=== PATIENT | male | born 1940 | race African-American/Black ===

== ENCOUNTER → 2016-06-20 | Outpatient (CLI) | payer MEDICARE, MEDICAID ==
[~2016-06-20] MED LIST: ASPI-518; ATEN50TA PO; FERR-63 PO; POTA99TA25 PO; ROSU20TA; TRIA1POW10 PO
== END | disposition home or self-care (01) ==
LOC: MRI 09:05
PROVIDERS: ATTEND Neurological Surgery
DX: M48.06 Spinal stenosis, lumbar region (principal)
CPT/HCPCS: 72148

== ENCOUNTER → 2016-06-26 | Outpatient (CLI) | payer MEDICARE, MEDICAID ==
[~2016-06-26] MED LIST changes: +AMLO1TAB36 PO; +AMLO1TAB39 PO; +CHOL500010 PO; +HYDR-519 PO; +IBUP-1636 PO; +METO25TA6 PO; +MULT-1146 PO; +NEBI10TA2 PO; +POTA20TA82 PO; +[UNRECOGNIZED DRUG - CODE] PO
[2016-06-26 12:26] LABS: CLARITY URINE CLEAR (CLEAR); COLOR URINE YELLOW (YELLOW); GLUCOSE URINE NEGATIVE (NEGATIVE); KETONES URINE NEGATIVE (NEGATIVE); LEUKOCYTE ESTERASE URINE NEGATIVE (NEGATIVE); NITRITE URINE NEGATIVE (NEGATIVE); OCCULT BLOOD URINE NEGATIVE (NEGATIVE); PH URINE 6.5 (4.5-8.0); PROTEIN URINE NEGATIVE (NEGATIVE); SPECIFIC GRAVITY URINE 1.017 (1.005-1.030); UROBILINOGEN URINE 0.2 E.U./dL (0.2-1.0)
[2016-06-26 12:30] LABS: BASOPHILS % 0.9 % (0.0-2.0); EOSINOPHILS % 4.4 % (0.0-5.0); HEMATOCRIT. 39.9 % (42.0-52.0); HEMOGLOBIN. 12.8 g/dL (14.0-18.0); LYMPHOCYTES % 30.5 % (20.0-50.0); MEAN CORPUSCULAR HEMOGLOBIN 26.5 pg (28.0-32.0); MEAN CORPUSCULAR VOLUME 82.3 fL (80.0-94.0); MEAN PLATELET VOLUME 8.3 fl (7.4-10.4); MONOCYTES % 11.2 % (2.0-8.0); PLATELET 200 x1000/uL (130-400); RED BLOOD CELL COUNT 4.85 mill/uL (4.7-6.1); RED CELL DISTRIBUTION WIDTH 14.4 % (11.6-14.6)
[2016-06-26 12:34] LABS: PROTHROMBIN TIME 10.1 sec
[2016-06-26 12:37] LABS: CARBON DIOXIDE 31 mEq/L (21-32); CHLORIDE 107 mEq/L (98-107)
== END | disposition home or self-care (01) ==
LOC: LAB 11:54
PROVIDERS: ATTEND Neurological Surgery
DX: Z01.818 Encounter for other preprocedural examination (principal); M48.06 Spinal stenosis, lumbar region; I25.10 Atherosclerotic heart disease of native coronary artery without angina pectoris; Z79.01 Long term (current) use of anticoagulants; Z98.1 Arthrodesis status
CPT/HCPCS: 36415; 80053; 81003; 85025; 85610; 85730; 86850; 86900

== ENCOUNTER → 2016-06-28 | Outpatient (CLI) | payer MEDICARE, MEDICAID ==
[~2016-06-28] MED LIST changes: -AMLO1TAB36 PO; -AMLO1TAB39 PO; -CHOL500010 PO; -HYDR-519 PO; -IBUP-1636 PO; -METO25TA6 PO; -MULT-1146 PO; -NEBI10TA2 PO; -POTA20TA82 PO; -[UNRECOGNIZED DRUG - CODE] PO
== END | disposition home or self-care (01) ==
LOC: RAD 13:10
PROVIDERS: ATTEND Neurological Surgery
DX: M48.06 Spinal stenosis, lumbar region (principal); Z98.1 Arthrodesis status
CPT/HCPCS: 71020; 93005

== ENCOUNTER → 2016-08-23 | Outpatient (CLI) | payer MEDICARE, MEDICAID ==
[~2016-08-23] MED LIST changes: +AMLO1TAB36 PO; +CHOL500010 PO; +HYDR-519 PO; +IBUP-1636 PO; +METO25TA6 PO; +MULT-1146 PO; +NEBI10TA2 PO; +POTA20TA82 PO; -POTA99TA25 PO; +[UNRECOGNIZED DRUG - CODE] PO
== END | disposition home or self-care (01) ==
LOC: RAD 14:18
PROVIDERS: ATTEND Neurological Surgery
DX: M47.897 Other spondylosis, lumbosacral region (principal); M47.896 Other spondylosis, lumbar region
CPT/HCPCS: 72114

== ENCOUNTER 2017-02-24 16:08 | Emergency (ER) | payer MEDICARE, MEDICAID ==
[~2017-02-24] VITALS: Ht 177.8 cm; Wt 75.0 kg
[2017-02-24 16:28] VITALS: BP 108/50
[2017-02-24 16:42] LABS: BASOPHILS % 0.7 % (0.0-2.0); HEMATOCRIT. 44.3 % (42.0-52.0); HEMOGLOBIN. 14.3 g/dL (14.0-18.0); LYMPHOCYTES % 26.7 % (20.0-50.0); MEAN CORPUSCULAR HEMOGLOBIN 26.6 pg (28.0-32.0); MEAN CORPUSCULAR VOLUME 82.4 fL (80.0-94.0); MEAN PLATELET VOLUME 8.8 fl (7.4-10.4); MONOCYTES % 10.8 % (2.0-8.0); NEUTROPHILS % 61.8 % (40.0-76.0); PLATELET 159 x1000/uL (130-400); RED BLOOD CELL COUNT 5.38 mill/uL (4.7-6.1); RED CELL DISTRIBUTION WIDTH 14.9 % (11.6-14.6)
[2017-02-24] MEDS ORDERED: ASPIRIN 81MG TABLET ONE (16:44)
[2017-02-24] MEDS ORDERED: ASPIRIN 325MG TABLET PO ONE (16:45)
[2017-02-24 16:50] LABS: INR 1.1; PARTIAL THROMBOPLASTIN TIME 29.4 sec (23.4-31.0); PROTHROMBIN TIME 11.7 sec (9.4-11.6)
[2017-02-24 16:55] LABS: CARBON DIOXIDE 23 mEq/L (21-32); CHLORIDE 103 mEq/L (98-107)
[2017-02-24 17:02] LABS: CREATINE KINASE 164 IU/L (39-308); CREATINE KINASE MB FRACTION 1.8 ng/mL (0.5-3.6)
[2017-02-24 17:03] LABS: TROPONIN I 0.45 ng/mL (0.00-0.04)
== END 2017-02-24 17:06 | disposition short-term general hospital (02) ==
LOC: ER 16:16
DX: I21.9 Acute myocardial infarction, unspecified (principal); I11.9 Hypertensive heart disease without heart failure; I48.91 Unspecified atrial fibrillation; E78.00 Pure hypercholesterolemia, unspecified; Z95.5 Presence of coronary angioplasty implant and graft; Z79.82 Long term (current) use of aspirin; Z79.899 Other long term (current) drug therapy
CPT/HCPCS: 36415; 80053; 82550; 82553; 83690; 83880; 84443; 84484; 85025; 85610; 85730; 93005; 99291

== ENCOUNTER 2018-12-10 13:14 | Emergency (ER) | payer MEDICARE, MEDICAID ==
[~2018-12-10] VITALS: Ht 177.8 cm; Wt 75.0 kg
[~2018-12-10 13:14] MED LIST changes: -ASPI-518; +ASPI-518 PO; -ROSU20TA; +ROSU20TA2 PO
[2018-12-10] MEDS ORDERED: ADENOSINE 3 MG/ML 2ML VIAL IV ONE ×4 (13:30→13:32)
[2018-12-10] MEDS ORDERED: ATENOLOL 25MG TABLET PO ONE (14:00)
[2018-12-10 14:58] VITALS: BP 119/65
[2018-12-12] MEDS ORDERED: METO-411 MT (11:56)
[2018-12-12] MEDS ORDERED: POTA20TA82 MT (11:56)
[2018-12-12] MEDS ORDERED: HYDR-4009 MT (11:56)
[2018-12-12] MEDS ORDERED: ALPR2TAB2 PO (11:56)
[2018-12-12] MEDS ORDERED: GABA-531 MT (11:56)
[2018-12-12] MEDS ORDERED: TIZA4CAP6 MT (11:56)
[2018-12-12] MEDS ORDERED: OMEP20TA2 MT (11:56)
[2018-12-12] MEDS ORDERED: AMLO1TAB36 MT (11:56)
== END 2018-12-11 00:13 | disposition home or self-care (01) ==
LOC: ER 13:14
DX: I47.1 Supraventricular tachycardia (principal); I10 Essential (primary) hypertension; Z98.890 Other specified postprocedural states; Z79.82 Long term (current) use of aspirin; Z79.899 Other long term (current) drug therapy; Z88.8 Allergy status to other drugs, medicaments and biological substances
CPT/HCPCS: 93005; 96374; 99283; J0153

== ENCOUNTER 2018-12-12 05:01 | Inpatient (IN) | payer MEDICARE, MEDICAID ==
[~2018-12-12] VITALS: Ht 177.8 cm; Wt 77.7 kg
[2018-12-12] MEDS ORDERED: SODIUM CHLORIDE 0.9% 1,000 ML IV ONE (05:10)
[2018-12-12] MEDS ORDERED: ADENOSINE 3 MG/ML 2ML VIAL IV ONE ×4 (05:15→05:30)
[2018-12-12] MEDS ORDERED: METOPROLOL TARTRATE 25MG TABLET PO ONE (05:30)
[2018-12-12 05:36] LABS: CHLORIDE 106 mEq/L (98-107)
[2018-12-12 05:44] LABS: BASOPHILS % 0.9 % (0.0-2.0); EOSINOPHILS % 2.3 % (0.0-5.0); HEMATOCRIT. 45.8 % (42.0-52.0); HEMOGLOBIN. 14.9 g/dL (14.0-18.0); LYMPHOCYTES % 41.9 % (20.0-50.0); MEAN CORPUSCULAR HEMOGLOBIN 28.1 pg (28.0-32.0); MEAN CORPUSCULAR VOLUME 86.2 fL (80.0-94.0); MEAN PLATELET VOLUME 8.9 fl (7.4-10.4); MONOCYTES % 9.5 % (2.0-8.0); NEUTROPHILS % 45.4 % (40.0-76.0); PLATELET 233 x1000/uL (130-400); RED BLOOD CELL COUNT 5.31 mill/uL (4.7-6.1); RED CELL DISTRIBUTION WIDTH 14.9 % (11.6-14.6)
[2018-12-12 06:50] VITALS: BP 125/82
[2018-12-12 07:30] VITALS: BP 108/61
[2018-12-12 08:00] VITALS: BP 108/61
[2018-12-12] MEDS ORDERED: ONDANSETRON HCL 4MG/2ML INJ IV PRN (11:30)
[2018-12-12] MEDS ORDERED: OMEPRAZOLE 20MG CAPSULE EXTENDED RELEASE PO PRN (11:30)
[2018-12-12] MEDS ORDERED: AMLO1TAB36 MT (11:56)
[2018-12-12] MEDS ORDERED: ALPR2TAB2 PO (11:56)
[2018-12-12] MEDS ORDERED: HYDR-4009 MT (11:56)
[2018-12-12] MEDS ORDERED: POTA20TA82 MT (11:56)
[2018-12-12] MEDS ORDERED: TIZA4CAP6 MT (11:56)
[2018-12-12] MEDS ORDERED: GABA-531 MT (11:56)
[2018-12-12] MEDS ORDERED: METO-411 MT (11:56)
[2018-12-12] MEDS ORDERED: OMEP20TA2 MT (11:56)
[2018-12-12 12:00] VITALS: BP 116/64
[2018-12-12] MEDS ORDERED: SODIUM CHLORIDE 0.9% INJ 3ML FLUSH IVF SCH (12:08)
[2018-12-12 16:00] VITALS: BP 142/78
[2018-12-12 20:00] VITALS: BP 132/71
[2018-12-12] MEDS ORDERED: ATORVASTATIN CALCIUM 20MG TABLET PO SCH (21:00)
[2018-12-12] MEDS ORDERED: METOPROLOL TARTRATE 50MG TABLET PO SCH (21:00)
[2018-12-12] MEDS ORDERED: ADENOSINE 3 MG/ML 2ML VIAL IV NR ×2 (21:51→22:00)
[2018-12-12 23:02] LABS: CLARITY URINE CLEAR (CLEAR); COLOR URINE YELLOW (YELLOW); KETONES URINE NEGATIVE (NEGATIVE); LEUKOCYTE ESTERASE URINE NEGATIVE (NEGATIVE); NITRITE URINE NEGATIVE (NEGATIVE); OCCULT BLOOD URINE NEGATIVE (NEGATIVE); PH URINE 7.5 (4.5-8.0); PROTEIN URINE NEGATIVE (NEGATIVE); SPECIFIC GRAVITY URINE 1.015 (1.005-1.030)
[2018-12-13] VITALS: BP 130/72
[2018-12-13 04:00] VITALS: BP 131/75
[2018-12-13 06:42] LABS: BASOPHILS % 0.7 % (0.0-2.0); EOSINOPHILS % 1.4 % (0.0-5.0); HEMATOCRIT. 41.6 % (42.0-52.0); HEMOGLOBIN. 13.5 g/dL (14.0-18.0); LYMPHOCYTES % 27.3 % (20.0-50.0); MEAN CORPUSCULAR HEMOGLOBIN 27.8 pg (28.0-32.0); MEAN CORPUSCULAR VOLUME 85.7 fL (80.0-94.0); MEAN PLATELET VOLUME 8.8 fl (7.4-10.4); MONOCYTES % 9.2 % (2.0-8.0); NEUTROPHILS % 61.4 % (40.0-76.0); PLATELET 194 x1000/uL (130-400); RED BLOOD CELL COUNT 4.85 mill/uL (4.7-6.1); RED CELL DISTRIBUTION WIDTH 14.4 % (11.6-14.6)
[2018-12-13 07:21] LABS: PHOSPHORUS 2.7 mg/dL (2.5-4.9)
[2018-12-13 07:53] VITALS: BP 127/83
[2018-12-13] MEDS ORDERED: METOPROLOL TARTRATE 50MG TABLET PO SCH (09:00)
[2018-12-13 10:37] VITALS: BP 127/83
[2018-12-13 11:48] VITALS: BP 138/77
== END 2018-12-13 13:12 | disposition home health service (06) | DRG 309 ==
LOC: ER 05:01 → 7WST 05:47 → ENRESERV 06:01
PROVIDERS: ADMIT Internal Medicine; ATTEND Internal Medicine
PROC: 5A2204Z Restoration of Cardiac Rhythm, Single (ICD-10-PCS; principal; 2018-12-12)
DX: I47.1 Supraventricular tachycardia (principal); E87.2 Acidosis; E78.5 Hyperlipidemia, unspecified; G89.29 Other chronic pain; I10 Essential (primary) hypertension; I25.10 Atherosclerotic heart disease of native coronary artery without angina pectoris; M47.817 Spondylosis without myelopathy or radiculopathy, lumbosacral region; M51.37 Other intervertebral disc degeneration, lumbosacral region; N40.0 Benign prostatic hyperplasia without lower urinary tract symptoms; M19.90 Unspecified osteoarthritis, unspecified site; Z79.899 Other long term (current) drug therapy; Z95.5 Presence of coronary angioplasty implant and graft; Z88.8 Allergy status to other drugs, medicaments and biological substances
CPT/HCPCS: 36415; 71045; 80061; 80076; 81003; 82310; 83036; 83540; 83550; 83605; 83735; 83880; 84100; 84153; 84443; 84480; 84481; 84484; 84550; 93005; 93970; 96374; 99283; 99291; J0153; J7030; G0103

== ENCOUNTER 2021-10-08 18:13 | Emergency (ER) | payer MEDICARE, MEDICAID ==
[~2021-10-08] VITALS: Ht 177.8 cm; Wt 75.0 kg
[~2021-10-08 18:13] MED LIST changes: +ALPR2TAB2 PO; +AMLO1TAB36 MT; -AMLO1TAB36 PO; -CHOL500010 PO; -FERR-63 PO; +GABA-532 MT; +HYDR-4009 MT; -HYDR-519 PO; -IBUP-1636 PO; +METO-411 MT; -METO25TA6 PO; -MULT-1146 PO; -NEBI10TA2 PO; +OMEP20TA23 MT; +POTA-205 MT; -POTA20TA82 PO; +TIZA4CAP6 MT; -TRIA1POW10 PO; -[UNRECOGNIZED DRUG - CODE] PO
[2021-10-08] MEDS ORDERED: HYDROCODONE/ACETAMINOPHEN 10/325MG TABLET PO ONE (22:30)
[2021-10-08] MEDS ORDERED: IBUPROFEN 600MG TABLET PO ONE (22:30)
[2021-10-08 23:11] VITALS: BP 135/86
== END 2021-10-08 23:12 | disposition home or self-care (01) ==
LOC: ER 18:13
DX: R07.81 Pleurodynia (principal); R07.89 Other chest pain; M25.511 Pain in right shoulder; M79.671 Pain in right foot; I11.0 Hypertensive heart disease with heart failure; I50.9 Heart failure, unspecified; I48.91 Unspecified atrial fibrillation; Z79.01 Long term (current) use of anticoagulants; Z79.82 Long term (current) use of aspirin; Z79.899 Other long term (current) drug therapy
CPT/HCPCS: 71045; 73630; 99284

== ENCOUNTER → 2022-10-02 | Day surgery (SDC) | payer MEDICARE, MEDICAID ==
[~2022-10-02] VITALS: Ht 177.8 cm; Wt 70.3 kg
[~2022-10-02] MED LIST changes: -ATEN50TA PO; +BALANCED SALT IRRIG SOLN COMB1 500ML OP NR; +CARV20CP PO; +CYAN500T9 PO; +DEXAMETHASONE 4MG/ML 1ML VIAL ONE; +DILT30TA37 PO; +DULO60CA45 PO; +ERGO1250 PO; +ESCI20TA37 PO; +FENTANYL CITRATE/PF 50MCG/ML 2ML VIAL IV PRN; -GABA-532 MT; +HYALURONATE SODIUM 10 MG/ML 0.55ML SYRINGE IO ONE; +LACTATED RINGERS 1,000 ML IV SCH; +LIDOCAINE HCL 1% 10 MG/ML 10ML VIAL ONE; +METHYLPREDNISOLONE SOD SUCC 40MG/ML (ACT-O-VIAL) ONE; -METO-411 MT; +MIDAZOLAM HCL 2 MG/2 ML VIAL ONE; +ONDANSETRON HCL 4MG/2ML INJ ONE; +PHENYLEPHRINE 2.5% OPHTH 15 DROP/ML BOTTLE RIGHTEYE ONE; -POTA-205 MT; +PROPOFOL 200MG/20ML VIAL IV ONE; +TOBRAMYCIN/DEXAMETHASONE OPTH DROPS 2.5ML ONE; +TROPICAMIDE 1% OPHTH DROPS 15ML RIGHTEYE ONE; +TRYPAN BLUE 0.5 ML DISP.SYRIN IO ONE; +VOLTAREN TOP
[2022-10-02 07:49] LABS: BASOPHILS % 1.3 % (0.0-2.0); EOSINOPHILS % 4.1 % (0.0-5.0); HEMATOCRIT. 40.8 % (42.0-52.0); HEMOGLOBIN. 13.3 g/dL (14.0-18.0); LYMPHOCYTES % 26.5 % (20.0-50.0); MEAN CORPUSCULAR HEMOGLOBIN 28.3 pg (28.0-32.0); MEAN CORPUSCULAR VOLUME 86.8 fL (80.0-94.0); MEAN PLATELET VOLUME 8.1 fl (7.4-10.4); MONOCYTES % 11.7 % (2.0-8.0); NEUTROPHILS % 56.4 % (40.0-76.0); PLATELET 214 x1000/uL (130-400); RED CELL DISTRIBUTION WIDTH 15.9 % (11.6-14.6)
[2022-10-02 07:59] LABS: CHLORIDE 111 mEq/L (98-107)
== END | disposition home or self-care (01) ==
LOC: OR 07:09
PROVIDERS: ATTEND Ophthalmology
DX: H25.89 Other age-related cataract (principal); I10 Essential (primary) hypertension; I25.10 Atherosclerotic heart disease of native coronary artery without angina pectoris; E78.00 Pure hypercholesterolemia, unspecified; I48.91 Unspecified atrial fibrillation; F41.9 Anxiety disorder, unspecified; F32.9 Major depressive disorder, single episode, unspecified; Z85.46 Personal history of malignant neoplasm of prostate; Z87.891 Personal history of nicotine dependence; Z79.899 Other long term (current) drug therapy; Z98.890 Other specified postprocedural states; Z79.82 Long term (current) use of aspirin; Z82.49 Family history of ischemic heart disease and other diseases of the circulatory system; Z88.8 Allergy status to other drugs, medicaments and biological substances
CPT/HCPCS: 80048; 85025; 36415; 93005; 66984; J1100; J3490 ×2; J2920; J2250; J2405; J2704; Z7610 ×23; V2632; Q9957

== ENCOUNTER 2022-10-22 10:33 | Emergency (ER) | payer MEDICARE, MEDICAID ==
[~2022-10-22] VITALS: Ht 177.8 cm; Wt 77.0 kg
[~2022-10-22 10:33] MED LIST changes: -BALANCED SALT IRRIG SOLN COMB1 500ML OP NR; -DEXAMETHASONE 4MG/ML 1ML VIAL ONE; -DILT30TA37 PO; -FENTANYL CITRATE/PF 50MCG/ML 2ML VIAL IV PRN; -HYALURONATE SODIUM 10 MG/ML 0.55ML SYRINGE IO ONE; -LACTATED RINGERS 1,000 ML IV SCH; -LIDOCAINE HCL 1% 10 MG/ML 10ML VIAL ONE; -METHYLPREDNISOLONE SOD SUCC 40MG/ML (ACT-O-VIAL) ONE; -MIDAZOLAM HCL 2 MG/2 ML VIAL ONE; -ONDANSETRON HCL 4MG/2ML INJ ONE; -PHENYLEPHRINE 2.5% OPHTH 15 DROP/ML BOTTLE RIGHTEYE ONE; -PROPOFOL 200MG/20ML VIAL IV ONE; -TOBRAMYCIN/DEXAMETHASONE OPTH DROPS 2.5ML ONE; -TROPICAMIDE 1% OPHTH DROPS 15ML RIGHTEYE ONE; -TRYPAN BLUE 0.5 ML DISP.SYRIN IO ONE
[2022-10-22 10:42] VITALS: O2SAT 98
[2022-10-22] MEDS: ACETAMINOPHEN 325MG TABLET PO STA (13:19)
[2022-10-22 13:54] LABS: BASOPHILS % 0.7 % (0.0-2.0); CHLORIDE 104 mEq/L (98-107); EOSINOPHILS % 0.6 % (0.0-5.0); HEMATOCRIT. 43.7 % (42.0-52.0); HEMOGLOBIN. 14.2 g/dL (14.0-18.0); INDEX HEMOLYSI 1 (1-3); INDEX ICTERIC 1 (1-4); INDEX LIPEMIC 1 (1-3); LYMPHOCYTES % 13.9 % (20.0-50.0); MEAN CORPUSCULAR HGB CONC 32.4 g/dL (31.0-37.0); MEAN CORPUSCULAR VOLUME 86.5 fL (80.0-94.0); MEAN PLATELET VOLUME 8.7 fl (7.4-10.4); MONOCYTES % 11.2 % (2.0-8.0); NEUTROPHILS % 73.6 % (40.0-76.0); PLATELET 180 x1000/uL (130-400); POTASSIUM 3.9 mEq/L (3.5-5.1); RED BLOOD CELL COUNT 5.06 mill/uL (4.7-6.1); RED CELL DISTRIBUTION WIDTH 15.1 % (11.6-14.6); SODIUM 135 mEq/L (136-145); WHITE BLOOD COUNT 8.7 x1000/uL (4.5-11.0)
[2022-10-22 14:02] LABS: ALANINE AMINOTRANSFERASE 28 IU/L (13-61); ALBUMIN 3.5 g/dL (3.4-5.0); ASPARTATE AMINOTRANSFERASE 18 IU/L (15-37); CALCIUM 10.1 mg/dL (8.5-10.1); CARBON DIOXIDE 22 mEq/L (21-32); CREATININE 0.9 mg/dL (0.6-1.3); GLUCOSE 105 mg/dL (70-105); PROTEIN TOTAL 7.4 g/dL (6.0-8.3); UREA NITROGEN BLOOD 13 mg/dL (7-21)
[2022-10-22 15:24] LABS: BILIRUBIN TOTAL 1.5 mg/dL (0.1-1.0)
[2022-10-22] MEDS: ACETAMINOPHEN 325MG TABLET PO NR (15:30)
[2022-10-22 19:10] VITALS: BP 129/89; PULSE 89; RESP 20; TEMP 98.1
[2022-10-22] MEDS ORDERED: DOCUSATE SODIUM 100MG CAPSULE PO PRN (19:45)
[2022-10-22] MEDS ORDERED: GUAIFENESIN 200MG/10ML SUGAR FREE UDC PO PRN (19:45)
[2022-10-22] MEDS ORDERED: NALOXONE HCL 0.4MG/ML VIAL IV PRN (19:45)
[2022-10-22] MEDS ORDERED: ACETAMINOPHEN 325MG TABLET PO PRN (19:45)
[2022-10-22] MEDS ORDERED: TRAMADOL 50MG TABLET PO PRN (19:45)
[2022-10-22] MEDS ORDERED: ONDANSETRON HCL 4MG/2ML INJ IV PRN (19:45)
[2022-10-22] MEDS ORDERED: HYDROCODONE/ACETAMINOPHEN 7.5/325MG TABLET PO PRN (19:45)
[2022-10-22] MEDS ORDERED: DIPHENHYDRAMINE 50MG/ML VIAL IV PRN (19:45)
== END 2022-10-22 20:13 | disposition left against medical advice (07) ==
LOC: ER 10:49 → EDBEDREQTM 17:11 → EDBEDREQ 17:11 → CANBEDREQ 19:56 → ER 20:13
DX: M25.471 Effusion, right ankle (principal); I48.91 Unspecified atrial fibrillation; I10 Essential (primary) hypertension; Z79.82 Long term (current) use of aspirin; Z79.899 Other long term (current) drug therapy
CPT/HCPCS: 99285; 93971; 76881; 80053; 84550; 85025; 85651; 87040; 36415; 73610; C1893

== ENCOUNTER 2023-09-23 22:02 | Emergency (ER) | payer MEDICARE, MEDICAID ==
[~2023-09-23] VITALS: Ht 177.8 cm; Wt 70.0 kg
[2023-09-23 22:13] VITALS: BP 117/69; PULSE 82; RESP 17; TEMP 98.8; O2SAT 99
[2023-09-23] MEDS ORDERED: ACETAMINOPHEN 500MG TABLET PO ONE (23:15)
[2023-09-24] MEDS: LIDOCAINE 5% PATCH TOP SCH (01:49)
[2023-09-24] MEDS: ACETAMINOPHEN 500MG TABLET PO NR (02:00)
[2023-09-24] MEDS: KETOROLAC 15MG/ML VIAL IM ONE (02:46)
[2023-09-24] MEDS ORDERED: METH-653 MT (03:15)
[2023-09-24] MEDS ORDERED: NAPR-1176 MT (03:15)
== END 2023-09-24 03:20 | disposition home or self-care (01) ==
LOC: ER 22:02
DX: M54.42 Lumbago with sciatica, left side (principal); I10 Essential (primary) hypertension; Z88.8 Allergy status to other drugs, medicaments and biological substances
CPT/HCPCS: 99285; 72131; 96372; J1885

== ENCOUNTER → 2024-03-15 | Outpatient (CLI) | payer MEDICARE, MEDICAID ==
[~2024-03-15] MED LIST changes: -ALPR2TAB2 PO; +BICA50TA48 PO; -CARV20CP PO; +COR12 PO; +HYDR-4001 MT; +LEUP7.5D2 IM; -OMEP20TA23 MT; +OXYC-100 MT; -ROSU20TA2 PO; +SULF1TAB48 MT; -TIZA4CAP6 MT; +TRAM50TA3 MT
== END | disposition home or self-care (01) ==
LOC: RAD 14:01
DX: M19.012 Primary osteoarthritis, left shoulder (principal); Z96.612 Presence of left artificial shoulder joint
CPT/HCPCS: 73030

== ENCOUNTER → 2024-09-03 | Outpatient (CLI) | payer MEDICARE, MEDICAID | END | disposition home or self-care (01) | LOC: RAD 12:43 | DX: M19.012 Primary osteoarthritis, left shoulder (principal) | CPT/HCPCS: 73030 ==

== ENCOUNTER → 2024-10-20 | Outpatient (CLI) | payer MEDICARE, MEDICAID | END | disposition home or self-care (01) | LOC: RAD 12:33 | DX: M16.0 Bilateral primary osteoarthritis of hip (principal); M25.852 Other specified joint disorders, left hip; M25.851 Other specified joint disorders, right hip; M19.012 Primary osteoarthritis, left shoulder; M25.552 Pain in left hip; M25.551 Pain in right hip; Z96.612 Presence of left artificial shoulder joint | CPT/HCPCS: 73030; 73521 ==

== ENCOUNTER 2025-01-27 11:18 | Inpatient (IN) | payer MEDICARE, MEDICAID ==
[~2025-01-27] VITALS: Ht 177.8 cm; Wt 70.3 kg
[~2025-01-27 11:18] MED LIST changes: +AMI2 PO; -AMLO1TAB36 MT; +APIX5TAB PO; +ASPI-1160 PO; -ASPI-518 PO; -BICA50TA48 PO; -CYAN500T9 PO; -DULO60CA45 PO; +EMPA10TA PO; -ERGO1250 PO; -ESCI20TA37 PO; -HYDR-4001 MT; -HYDR-4009 MT; -LEUP7.5D2 IM; +LIP40 PO; -OXYC-100 MT; -SULF1TAB48 MT; +TAMS-54 PO; -TRAM50TA3 MT; -VOLTAREN TOP
[2025-01-27 11:25] VITALS: O2SAT 98
[2025-01-27 12:46] LABS: BASOPHILS % 1.7 % (0.0-2.0); EOSINOPHILS % 2.9 % (0.0-5.0); HEMATOCRIT. 41.9 % (42.0-52.0); HEMOGLOBIN. 12.8 g/dL (14.0-18.0); LYMPHOCYTES % 22.1 % (20.0-50.0); MEAN PLATELET VOLUME 9.3 fl (7.4-10.4); MONOCYTES % 12.3 % (2.0-8.0); NEUTROPHILS % 61.0 % (40.0-76.0); PLATELET 214 x1000/uL (130-400); RED BLOOD CELL COUNT 5.08 mill/uL (4.7-6.1); RED CELL DISTRIBUTION WIDTH 16.7 % (11.6-14.6)
[2025-01-27 13:02] LABS: CREATININE 0.9 mg/dL (0.6-1.3); UREA NITROGEN BLOOD 6 mg/dL (9-23)
[2025-01-27 13:09] LABS: TROPONIN I HIGH SENSITIVITY 88 ng/L (3.0-53)
[2025-01-27] MEDS: FUROSEMIDE 40MG/4ML VIAL IVP ONE (13:23)
[2025-01-27] MEDS ORDERED: DOCUSATE SODIUM 100MG CAPSULE PO PRN (14:15)
[2025-01-27] MEDS ORDERED: IPRATROPIUM/ALBUTEROL 0.5-3(2.5)MG/3ML NEB HHN PRN (14:15)
[2025-01-27] MEDS ORDERED: ONDANSETRON HCL 4MG/2ML INJ IV PRN (14:15)
[2025-01-27] MEDS ORDERED: GUAIFENESIN 200MG/10ML SUGAR FREE UDC PO PRN (14:15)
[2025-01-27] MEDS ORDERED: MAGNESIUM/ALUMINUM HYDROXIDE/SIMETHICONE 30ML UDC PO PRN (14:15)
[2025-01-27] MEDS ORDERED: CLONIDINE 0.1MG TABLET PO PRN (14:15)
[2025-01-27 14:30] VITALS: BP 130/84; PULSE 115; RESP 16; TEMP 36.2512
[2025-01-27 14:48] LABS: CLARITY URINE CLEAR (CLEAR); COLOR URINE YELLOW (YELLOW); GLUCOSE URINE 2+ (NEGATIVE); KETONES URINE NEGATIVE (NEGATIVE); LEUKOCYTE ESTERASE URINE 1+ (NEGATIVE); NITRITE URINE NEGATIVE (NEGATIVE); OCCULT BLOOD URINE NEGATIVE (NEGATIVE); PH URINE 6.0 (4.5-8.0); PROTEIN URINE NEGATIVE (NEGATIVE); SPECIFIC GRAVITY URINE 1.010 (1.005-1.030); UROBILINOGEN URINE 0.2 E.U./dL (0.2-1.0)
[2025-01-27 15:54] LABS: SQUAMOUS EPITHELIAL CELL URINE FEW /lpf (RARE/1+)
[2025-01-27 15:55] LABS: RBC URINE 0-2 /hpf (0-2)
[2025-01-27 15:56] LABS: BACTERIA URINE 1+; YEAST URINE NONE SEEN
[2025-01-27 16:00] VITALS: BP 135/99; PULSE 113; RESP 16; TEMP 36; O2SAT 97
[2025-01-27] MEDS ORDERED: AMIODARONE 200MG TABLET PO SCH (16:00)
[2025-01-27] MEDS ORDERED: AMIODARONE 360MG/200ML 200 ML IV SCH (16:30)
[2025-01-27] MEDS: APIXABAN 5 MG TABLET PO SCH (17:28)
[2025-01-27] MEDS: AMIODARONE 150MG/100ML D5W 100 ML IV SCH (19:03)
[2025-01-27] MEDS: AMIODARONE HCL 900 MG in DEXT 5% WATER 500 ML IV SCH (19:29)
[2025-01-27 20:00] VITALS: BP 119/75; PULSE 106; RESP 23; TEMP 36.4; O2SAT 97
[2025-01-27] MEDS: FUROSEMIDE 40MG/4ML VIAL IV SCH (20:56)
[2025-01-27] MEDS: ATORVASTATIN CALCIUM 40MG TABLET PO SCH (20:56)
[2025-01-27 22:00] VITALS: BP 125/87; PULSE 99; RESP 14; O2SAT 98
[2025-01-27 22:37] LABS: FOLIC ACID (FOLATE) SERUM 14.83 ng/mL (>5.38)
[2025-01-27 22:38] LABS: VITAMIN B12 SERUM 1946 pg/mL (211-911)
[2025-01-27 23:05] LABS: TROPONIN I HIGH SENSITIVITY 71 ng/L (3.0-53)
[2025-01-27] MEDS: MELATONIN 3MG TABLET PO SCH (23:37)
[2025-01-28] VITALS (11 sets, daily range): BP systolic 107–143; BP diastolic 67–92; PULSE 94–117; RESP 17–25; TEMP 36.4–36.8; O2SAT 95–98
[2025-01-28 07:56] LABS: BASOPHILS % 1.2 % (0.0-2.0); EOSINOPHILS % 1.9 % (0.0-5.0); HEMATOCRIT. 46.1 % (42.0-52.0); HEMOGLOBIN. 13.7 g/dL (14.0-18.0); LYMPHOCYTES % 19.3 % (20.0-50.0); MEAN PLATELET VOLUME 9.8 fl (7.4-10.4); MONOCYTES % 11.4 % (2.0-8.0); NEUTROPHILS % 66.2 % (40.0-76.0); PLATELET 188 x1000/uL (130-400); RED BLOOD CELL COUNT 5.59 mill/uL (4.7-6.1); RED CELL DISTRIBUTION WIDTH 17.0 % (11.6-14.6)
[2025-01-28 08:16] LABS: TROPONIN I HIGH SENSITIVITY 87 ng/L (3.0-53)
[2025-01-28 08:24] LABS: CREATININE 1.1 mg/dL (0.6-1.3)
[2025-01-28 08:25] LABS: LDL CHOLESTEROL 58 mg/dL (5-100); TRIGLYCERIDE 55 mg/dL (0-150); UREA NITROGEN BLOOD 9 mg/dL (9-23)
[2025-01-28 08:26] LABS: ASPARTATE AMINOTRANSFERASE 41 IU/L (<34)
[2025-01-28 08:27] LABS: BILIRUBIN DIRECT 0.6 mg/dL (<=3.0); BILIRUBIN TOTAL 1.4 mg/dL (0.1-1.0); PROTEIN TOTAL 6.4 g/dL (6.0-8.3)
[2025-01-28 08:29] LABS: T4 FREE 1.59 ng/dL (0.89-1.76)
[2025-01-28] MEDS: TAMSULOSIN HCL 0.4MG SR CAPSULE PO SCH (08:36)
[2025-01-28] MEDS: PANTOPRAZOLE SODIUM 40 MG/VIAL IV SCH (08:36)
[2025-01-28] MEDS: ASPIRIN 81MG EC TABLET PO SCH (08:36)
[2025-01-28] MEDS: EMPAGLIFLOZIN 10MG TABLET PO SCH (08:36)
[2025-01-29] VITALS (12 sets, daily range): BP systolic 91–135; BP diastolic 67–106; PULSE 87–120; RESP 18–23; TEMP 36.4–36.7; O2SAT 93–100
[2025-01-29 06:00] LABS: BASOPHILS % 0.6 % (0.0-2.0); EOSINOPHILS % 1.9 % (0.0-5.0); HEMATOCRIT. 46.4 % (42.0-52.0); HEMOGLOBIN. 14.5 g/dL (14.0-18.0); LYMPHOCYTES % 15.6 % (20.0-50.0); MEAN PLATELET VOLUME 9.6 fl (7.4-10.4); MONOCYTES % 11.3 % (2.0-8.0); NEUTROPHILS % 70.6 % (40.0-76.0); PLATELET 211 x1000/uL (130-400); RED BLOOD CELL COUNT 5.82 mill/uL (4.7-6.1); RED CELL DISTRIBUTION WIDTH 16.7 % (11.6-14.6)
[2025-01-29 06:19] LABS: CREATININE 1.2 mg/dL (0.6-1.3)
[2025-01-29 06:20] LABS: UREA NITROGEN BLOOD 10 mg/dL (9-23)
[2025-01-29 06:22] LABS: PHOSPHORUS 3.5 mg/dL (2.5-4.9)
[2025-01-29] MEDS: FAMOTIDINE 20MG/2ML VIAL IV SCH (09:00)
[2025-01-29] MEDS: MAGNESIUM 2 G PREMIX 50 ML IV NR (09:02)
[2025-01-29] MEDS: POTASSIUM CHLORIDE 10MEQ TABLET SR PO NR (12:52)
[2025-01-29] MEDS: POTASSIUM CHLORIDE 20MEQ TABLET SR PO NR (12:52)
[2025-01-29] MEDS: AMIODARONE 200MG TABLET PO SCH (15:46)
[2025-01-29] MEDS: METOPROLOL TARTRATE 25MG TABLET PO SCH (15:48)
[2025-01-29] MEDS: SACUBITRIL/VALSARTAN 24MG/26MG TABLET PO SCH (20:57)
[2025-01-29] MEDS: METOPROLOL TARTRATE 50MG TABLET PO SCH (21:00)
[2025-01-30] VITALS (8 sets, daily range): BP systolic 105–119; BP diastolic 78–88; PULSE 82–91; RESP 16–24; TEMP 36.3–36.6; O2SAT 94–99
[2025-01-30 05:50] LABS: CREATININE 1.2 mg/dL (0.6-1.3); UREA NITROGEN BLOOD 15 mg/dL (9-23)
[2025-01-30 06:25] LABS: PLATELET 211 x1000/uL (130-400); RED BLOOD CELL COUNT 5.21 mill/uL (4.7-6.1); RED CELL DISTRIBUTION WIDTH 16.8 % (11.6-14.6)
[2025-01-30] MEDS ORDERED: SACU1TAB PO (11:14)
== END 2025-01-30 12:19 | disposition home or self-care (01) | DRG 280 ==
LOC: ER 11:18 → 5WST 13:40 → EDBEDREQ 13:48 → EDBEDREQTM 13:48 → ENRESERV 14:01 → 5EST 18:40
PROVIDERS: ADMIT Internal Medicine; ATTEND Internal Medicine
DX: I11.0 Hypertensive heart disease with heart failure (principal); I50.23 Acute on chronic systolic (congestive) heart failure; I21.4 Non-ST elevation (NSTEMI) myocardial infarction; J96.21 Acute and chronic respiratory failure with hypoxia; E85.4 Organ-limited amyloidosis; D63.8 Anemia in other chronic diseases classified elsewhere; Z79.01 Long term (current) use of anticoagulants; E85.9 Amyloidosis, unspecified; I48.92 Unspecified atrial flutter; I43 Cardiomyopathy in diseases classified elsewhere; I25.10 Atherosclerotic heart disease of native coronary artery without angina pectoris; I48.91 Unspecified atrial fibrillation; N40.0 Benign prostatic hyperplasia without lower urinary tract symptoms; E78.5 Hyperlipidemia, unspecified; E83.42 Hypomagnesemia; E87.6 Hypokalemia; Z96.612 Presence of left artificial shoulder joint; Z95.5 Presence of coronary angioplasty implant and graft; Z79.82 Long term (current) use of aspirin; Z79.84 Long term (current) use of oral hypoglycemic drugs; Z79.899 Other long term (current) drug therapy; Z87.891 Personal history of nicotine dependence
CPT/HCPCS: 36415; 71045; 80048; 80061; 80076; 81003; 82553; 82607; 82728; 82746; 83540; 83550; 83605; 83735; 83880; 84100; 84145; 84439; 84443; 84481; 84484; 85025; 85027; 85044; 93005; 93971; 96374; 99285; A4606; J0282; J1308; J1938; J2470; J3475; J7060